=== PATIENT | female | born 1940 ===

== ENCOUNTER → 2020-11-11 | Emergency (ER) | payer OTHER ==
[~2020-11-11] VITALS: Ht 157.5 cm; Wt 49.0 kg
[~2020-11-11] MED LIST: KETO10TA2 PO
== END | disposition home or self-care (01) ==
LOC: ER 10:00
DX: S83.8X2A Sprain of other specified parts of left knee, initial encounter (principal); W01.198A Fall on same level from slipping, tripping and stumbling with subsequent striking against other object, initial encounter; Y93.89 Activity, other specified; Y92.238 Other place in hospital as the place of occurrence of the external cause; Y99.8 Other external cause status